=== PATIENT | female | born 1995 | race Caucasian/White ===

== ENCOUNTER → 2022-04-12 10:32 | Outpatient (BNVA) | payer MEDICAID, SELFPAY | PROVIDERS: Visit Provider Nurse Practitioner Women's Health | DX: Z34.91 Encounter for supervision of normal pregnancy, unspecified, first trimester (principal); Z3A.09 9 weeks gestation of pregnancy | CPT/HCPCS: 76801; 81000; 81025 ==

== ENCOUNTER → 2022-05-07 15:45 | Outpatient (BNVA) | payer OTHER, SELFPAY | PROVIDERS: Visit Provider Obstetrics & Gynecology | DX: O09.899 Supervision of other high risk pregnancies, unspecified trimester (principal) | CPT/HCPCS: 80307; 81000; 85027; 86592; 86762; 86803; 86850; 86900; 87086; 87340; 87491; 87591; 87661; 87806; 88175 ==

== ENCOUNTER → 2022-06-04 16:37 | Outpatient (BNVA) | payer MEDICAID, SELFPAY | PROVIDERS: Visit Provider Nurse Practitioner Women's Health | DX: O09.899 Supervision of other high risk pregnancies, unspecified trimester (principal); R00.2 Palpitations; R06.02 Shortness of breath; Z36.9 Encounter for antenatal screening, unspecified; O35.2XX0 Maternal care for (suspected) hereditary disease in fetus, not applicable or unspecified | CPT/HCPCS: 80053; 82105; 84315; 84443; 85025; 87086 ==

== ENCOUNTER 2022-07-23 19:25 | Outpatient (CLI) | payer OTHER, MEDICAID, SELFPAY ==
[2022-07-23] VITALS (8 sets, daily range): BP systolic 114–122; BP diastolic 67–75; PULSE 78–90; RESP 16; TEMP 35.6–36.8; BMI 27.8
[2022-07-23 20:42] LABS: Add Urine Microscopic? YES; Bilirubin Urine 1+ (Negative); Blood Urine Neg (Negative); Glucose Urine UA Norm (Normal); Ketones Urine 1+ (Negative); Leukocyte Esterase Urine Trace (Negative); Nitrate Urine Negative (Negative); Protein Urine Neg (Negative); Urine Appearance Hazy (CLEAR); Urine Color Yellow (Yellow); Urobilinogen Urine 4+ mg/dL (Negative); pH Urine 6.5 (5-7)
[2022-07-23 20:43] LABS: Add Urine Culture? No; Bacteria Urine 2+ /hpf; Calcium Oxalate Crystals Urine 15-25 /hpf; Mucus Urine 2+ /hpf; WBC Urine 0-4 /hpf (0-5)
== END 2022-07-23 21:01 | disposition home or self-care (01) ==
LOC: OPOB 19:32 → OBGYN 19:33
PROVIDERS: Visit Provider Obstetrics & Gynecology
DX: O26.899 Other specified pregnancy related conditions, unspecified trimester (principal); M54.9 Dorsalgia, unspecified; Z3A.00 Weeks of gestation of pregnancy not specified
CPT/HCPCS: 81001; 99211

== ENCOUNTER → 2022-07-26 08:49 | Outpatient (BNVA) | payer OTHER, MEDICAID, SELFPAY | PROVIDERS: Visit Provider Obstetrics & Gynecology | DX: O09.899 Supervision of other high risk pregnancies, unspecified trimester (principal) | CPT/HCPCS: 82950; 84315 ==

== ENCOUNTER 2022-08-25 18:15 | Outpatient (CLI) | payer MEDICAID, SELFPAY ==
[2022-08-25 18:15] VITALS: BMI 30.2
[2022-08-25 18:34] VITALS: BP 131/76; PULSE 86
[2022-08-25 18:55] VITALS: BP 117/74; PULSE 81
[2022-08-25 19:23] VITALS: BP 117/74; PULSE 81
== END 2022-08-25 19:20 | disposition home or self-care (01) ==
LOC: OPOB 18:25 → OBGYN 18:28
PROVIDERS: Absent Provider Obstetrics & Gynecology; Visit Provider Obstetrics & Gynecology
DX: O36.8190 Decreased fetal movements, unspecified trimester, not applicable or unspecified (principal); Z3A.00 Weeks of gestation of pregnancy not specified
CPT/HCPCS: 59025; 99211

== ENCOUNTER 2022-09-05 06:41 | Outpatient (CLI) | payer MEDICAID, SELFPAY ==
--- NOTE | 2022-09-05 07:15 | USR_ITS ---
PROCEDURE INFORMATION: Exam: US , Limited Exam date and time: 09/05/2022 7:28 AM Age: 27 years old Clinical indication: Screening exam; Other: Fundal height large for ga; ; Additional info: Z34.90 - encounter for supervision of normal , u. . . , Cpt: 03535 growth TECHNIQUE: Imaging protocol: Real-time ultrasound of the maternal uterus with image documentation. Exam focused on the clinical indication. COMPARISON: US OB <= 14 weeks fetus [id number] 04/12/2022 10:40 AM FINDINGS: Gestation: Single live intrauterine gestation with heart rate measuring 147 bpm. lie: Vertex lie. Placenta: Posterior placenta. Amniotic fluid index: SAMMY measures 14.4 cm, normal. BIOMETRY: Gestational age (AUA): Ultrasound gestational age of 31 weeks 2 days for an SOLOMON of 11/05/2022. Estimated weight: EFW measures 1723 g +/-258 g, 75th percentile. MATERNAL: Cervix: Maternal cervix is normal. Other findings: BPD measures 7.94 cm, 31 weeks 6 days, 91st percentile. HC measures 28.57 cm, 31 weeks 3 days, 60th percentile. HC measures 27.71 cm, 31 weeks 5 days, 92nd percentile. FL measures 5.74 cm, 30 weeks 1 day, 41st percentile. Ratios are all within normal limits. US/US OB limited [id number] IMPRESSION: 1. Single live intrauterine gestation with ultrasound gestational age of 31 weeks 2 days for an SOLOMON of 11/05/2022. 2. BPD measures at 91st percentile and HC measures at 92nd percentile. 3. EFW measures at 75th percentile.
== END 2022-09-05 06:42 | disposition home or self-care (01) ==
PROVIDERS: Visit Provider Obstetrics & Gynecology
DX: Z34.90 Encounter for supervision of normal pregnancy, unspecified, unspecified trimester (principal)
CPT/HCPCS: 76815

== ENCOUNTER 2022-10-02 18:00 | Outpatient (CLI) | payer OTHER, MEDICAID, SELFPAY ==
[2022-10-02] VITALS (9 sets, daily range): BP systolic 115–128; BP diastolic 63–76; PULSE 79–96; RESP 16; TEMP 35.9
--- NOTE | 2022-10-02 18:25 | USR_ITS ---
PROCEDURE INFORMATION: Exam: US Duplex Left Lower Extremity Veins, Limited Exam date and time: 10/02/2022 7:33 PM Age: 27 years old Clinical indication: Pain; Leg, lower; Left; Additional info: Rule out blood clot left calf TECHNIQUE: Imaging protocol: Real-time duplex ultrasound of the left extremity with 2-D polanco scale, color Doppler flow and spectral waveform analysis including responses to compression and other maneuvers (when performed) with image documentation. Limited exam focused on the left lower extremity veins. COMPARISON: US OB limited [id number] 09/05/2022 7:28 AM FINDINGS: Left deep veins: Unremarkable. The common femoral, femoral, proximal profunda femoral, popliteal, posterior tibial and peroneal veins are patent without thrombus. Normal compressibility, augmentation response and Doppler waveforms. Superficial veins: Unremarkable. Saphenofemoral junction is patent without thrombus. Soft tissues: Unremarkable. US/[place] [id number] IMPRESSION: No sonographic evidence of deep vein thrombosis.
[2022-10-02] MEDS: lactated ringers 1,000 ML 999 ML IV ×2 (19:09→20:13)
[2022-10-02 19:12] LABS: Bilirubin Urine Neg (Negative); Blood Urine Neg (Negative); Glucose Urine UA Norm (Normal); Ketones Urine Negative (Negative); Leukocyte Esterase Urine Negative (Negative); Nitrate Urine Negative (Negative); Protein Urine Neg (Negative); Urine Appearance Clear (CLEAR); Urine Color Yellow (Yellow); Urobilinogen Urine Norm (Negative); pH Urine 6.5 (5-7)
[2022-10-02 19:13] LABS: Add Urine Culture? No; Bacteria Urine TRACE /hpf; RBC Urine 0-4 /hpf (0-2); Squamous Epithelial Cell Urine 0-4 /hpf (0-5); WBC Urine 0-4 /hpf (0-5)
== END 2022-10-02 21:33 | disposition home or self-care (01) ==
LOC: OPOB 18:04 → OBGYN 18:05
PROVIDERS: Visit Provider Obstetrics & Gynecology
DX: O26.899 Other specified pregnancy related conditions, unspecified trimester (principal); M79.662 Pain in left lower leg; Z3A.00 Weeks of gestation of pregnancy not specified
CPT/HCPCS: 36415; 59025; 81001; 93971; 99211; J7120

== ENCOUNTER 2022-10-03 13:48 | Outpatient (CLI) | payer MEDICAID, SELFPAY ==
[2022-10-03] VITALS (49 sets, daily range): BP systolic 124–141; BP diastolic 76–87; PULSE 75–94; RESP 15; TEMP 35.9–36.6; O2SAT 98–100; BMI 30.2
[2022-10-03 14:31] LABS: Actim Prom Negative
--- NOTE | 2022-10-03 14:37 | US_ITS ---
WS: [id number] BIOPHYSICAL PROFILE AND LIMITED OB. HISTORY: fundus measuring ahead of EDC COMPARISON: 09/05/2022, 04/12/2022 Presentation: Vertex. Cervix: Closed and normal length. Placenta: Posterior, no previa or abruption. Grade: 1 HEART: FHR of 164BPM. Biophysical profile: Parameters are as follows: Breathin Movement: 2 Tone: 2 Fluid volume: 2 Amniotic fluid index: 20.1 cm. IMPRESSION: 1. Biophysical profile score: 8/8. 2. Normal amniotic fluid.
--- NOTE | 2022-10-03 17:15 | USR_ITS ---
PROCEDURE INFORMATION: Exam: US , Limited Exam date and time: 10/03/2022 5:25 PM Age: 27 years old Clinical indication: Screening exam; Other: Unclear dates; ; Additional info: Discrepencies in dates, growth scan LABS AND CLINICAL REPORTS: Last menstrual period start date: 02/08/2022 Gestational age (Established): 33 w 6 d Estimated due date (Established): 11/15/2022 TECHNIQUE: Imaging protocol: Real-time ultrasound of the maternal uterus with image documentation. Exam focused on the clinical indication. COMPARISON: US OB BPP wo NST [id number] 10/03/2022 2:51 PM FINDINGS: Gestation: Intrauterine gestation. heart rate: 150 bpm Placenta: Posterior placenta. Amniotic fluid index: SAMMY is 18 cm. BIOMETRY: Gestational age (AUA): 35 w 0 d Estimated weight: 2554 g Biparietal diameter (BPD): 8.7 cm. EGA (BPD) is 35 w 2 d Head circumference (HC): 31.6 cm. EGA (HC) is 35 w 3 d Abdominal circumference (AC): 31.2 cm. EGA (AC) is 35 w 1 d Femur length (FL): 6.7 cm. EGA (FL) is 34 w 2 d Cephalic Index (CI): 87.1 % HC/AC: 1.01 FL/HC: 21.1 % FL/BPD: 76.3 % FL/AC: 21.4 % US/US OB limited [id number] IMPRESSION: Live intrauterine gestation with an estimated gestational age of 35 weeks 0 days based on today's study. Based on established gestational age, this represents appropriate interval growth.
[2022-10-03] MEDS: NIFEdipine ER (24 hr) 30 mg Tablet PO (17:50)
[2022-10-03] MEDS: lactated ringers 1,000 ML 125 ML IV (19:30)
[2022-10-03] MEDS: ampicillin 2,000 MG in sodium chloride 0.9% (plus) 50 ML 100 MG IV (19:31)
[2022-10-03] MEDS: betamethasone susp 6 mg/mL 5 mL 12 MG IM (19:31)
--- NOTE | 2022-10-03 19:41 | PM.PN ---
Subjective Subjective: 27-year-old female G3, P2 with an EGA at 33 weeks +6 days complaining of contractions Vitals/I&O/Wt Last Vital Signs Temp 96.6 F L 10/03/22 14:08 Pulse 83 10/03/22 17:46 BP 137/79 10/03/22 16:00 Pulse Ox 98 10/03/22 17:46 Weight last 48 hrs Weight 87.636 kg Physical Exam Narrative: GA: Alert and oriented ?3. Lungs: Clear to auscultation bilaterally. Heart: Regular rhythm and rate. Abdomen: Gravid, full the height equals dates, nontender. SUPER[employer]OR [employer]INTENANCE: SVE; dilation: 1 cm, effacement: 20%, station: -3, presentation: VX, membranes: IM. Extremities: no edema, no cyanosis, no calves pain. heart tracing: Basal rate: 140's bpm, Variability: moderate, Accelerations: present, Decelerations: absent, Contraction: q3-5min. A&P Assessment and plan (1) labor in third trimester: 27-year-old female G3, P2 with an EGA at 33 weeks +6 days complaining of contractions. Initial cervical evaluation was close. Patient was offered tocolysis initially she declined the medication because she thought she has a viral breath large-base. Biophysical Profile 09/24, OB ultrasound correlate with estimated gestational age. After she was reassured the baby was normal size she accepted treatment with nifedipine. Cervical reevaluation showed the cervix was dilated to 1 cm with 20% effacement, and contractions every 3-5. She was started on antibiotics, tocolysis, steroids and magnesium sulfate. [facility] was called and OB hospitalist Dr. Cook accepted the patient for transfer. Attestations Medical Necessity Statement*: In my professional opinion per admitting diagnosis Coding Level of Care Code Acute Code for Chg Fwd Diagnoses labor in third trimester O60.03
[2022-10-03] MEDS: magnesium sulfate premix 20 GM/500 ML BAG IV (20:09)
[2022-10-03] MEDS: magnesium sulfate premix 4 GM/100 ML PREMIX IV (20:09)
[2022-10-03 20:16] LABS: Basophils % 0.2 %; Eosinophils # 0.1 10^3/uL (0.0-0.8); Eosinophils % 0.7 %; Hematocrit 33.9 % (37.0-47.0); Hemoglobin 11.1 g/dL (11.5-15.3); Lymphocytes # 1.6 10^3/uL (0.8-4.8); Lymphocytes % 15.3 %; Mean Corpuscular HGB Conc 32.7 g/dL (30.0-36.0); Mean Corpuscular Hemoglobin 26.2 pg (28.0-34.0); Mean Platelet Volume 10.1 fL (7.4-10.4); Monocytes # 0.7 10^3/uL (0.2-0.9); Monocytes % 6.2 %; Neutrophils # 8.09 10^3/uL (1.8-7.7); Neutrophils % 76.4 %; Nucleated Red Blood Cells % 0 %; Platelet Count 241 10^3/cmm (130-400); Red Blood Count 4.24 10^6/uL (4.1-5.3); Red Cell Distribution Width 12.7 % (12.1-15.1); White Blood Count 10.6 10^3/uL (4.0-10.0)
--- NOTE | 2022-10-03 23:05 | PC.NURSE ---
Pt was transferred with air evac at 2043 on 10/03/22
== END 2022-10-03 20:43 | disposition home or self-care (01) ==
LOC: OPOB 13:56 → OBGYN 13:57
PROVIDERS: Visit Provider Obstetrics & Gynecology
DX: O60.03 Preterm labor without delivery, third trimester (principal); Z3A.33 33 weeks gestation of pregnancy
CPT/HCPCS: 59025; 76815; 76819; 84112; 85025; 96372; 99211; J0290; J0702; J3475; J7120

== ENCOUNTER → 2022-10-08 13:21 | Outpatient (BNVA) | payer OTHER, MEDICAID, SELFPAY | PROVIDERS: Visit Provider Obstetrics & Gynecology | DX: O60.00 Preterm labor without delivery, unspecified trimester (principal) | CPT/HCPCS: 76819 ==

== ENCOUNTER 2022-10-18 10:37 | Outpatient (CLI) | payer MEDICAID, SELFPAY ==
[2022-10-18 10:56] VITALS: BP 141/85; PULSE 94
[2022-10-18 11:00] VITALS: RESP 16
--- NOTE | 2022-10-18 11:02 | US_ITS ---
WS: [id number] BIOPHYSICAL PROFILE AMNIOTIC FLUID HISTORY: swelling, hypertension COMPARISON: 10/08/2022 position: Vertex. Cardiac activity: 133 bpm. Cervix: closed. Placenta: Posterior, no previa or abruption. Placenta grade: 1 Parameters are as follows: Breathin Movement: 2 Tone: 2 Fluid volume: 2 Normal amniotic fluid. Large vertical pocket of 5.0 cm. IMPRESSION: 1. Biophysical profile score: 8/8. 2. Normal amniotic fluid.
[2022-10-18 11:15] VITALS: BP 122/69; PULSE 96
[2022-10-18 11:22] VITALS: BMI 30.2
[2022-10-18 11:24] LABS: Basophils % 0.2 %; Eosinophils # 0.1 10^3/uL (0.0-0.8); Eosinophils % 0.7 %; Hematocrit 32.8 % (36-47); Lymphocytes # 1.5 10^3/uL (0.8-4.8); Lymphocytes % 16.6 %; Mean Corpuscular HGB Conc 32.9 g/dL (30-55); Mean Corpuscular Hemoglobin 26.5 pg (27-33); Mean Corpuscular Volume 80.4 fl (85-98); Mean Platelet Volume 9.6 fL (7.4-10.4); Monocytes # 0.7 10^3/uL (0.2-0.9); Monocytes % 7.4 %; Neutrophils # 6.84 10^3/uL (1.8-7.7); Nucleated Red Blood Cells % 0 %; Platelet Count 276 10^3/cmm (157-399); Red Blood Count 4.08 10^6/uL (3.85-5.65); Red Cell Distribution Width 12.8 % (12.1-15.1); White Blood Count 9.23 10^3/uL (3.29-11.43)
[2022-10-18 11:26] VITALS: BP 119/67; PULSE 94
[2022-10-18 11:43] LABS: Add Urine Culture? No; Add Urine Microscopic? YES; Amorphous Sediment Urine 3+ /hpf; Bilirubin Urine Neg (Negative); Blood Urine Neg (Negative); Glucose Urine UA Norm (Normal); Ketones Urine Negative (Negative); Leukocyte Esterase Urine Trace (Negative); Nitrate Urine Negative (Negative); Protein Urine Neg (Negative); RBC Urine 0-4 /hpf (0-2); Squamous Epithelial Cell Urine 0-4 /hpf (0-5); Urine Appearance Clear (CLEAR); Urine Color Yellow (Yellow); Urobilinogen Urine Norm (Negative); WBC Urine 0-4 /hpf (0-5); pH Urine 7 (5-7)
[2022-10-18 12:03] VITALS: BP 122/76; PULSE 84
[2022-10-18 12:09] LABS: Urine Creatinine 51 mg/dL (28-217); Urine Protein Random 6 mg/dL
[2022-10-18 12:13] LABS: Alanine Aminotransferase 12 U/L (0-33); Albumin Level 3.6 g/dL (3.5-5.2); Alkaline Phosphatase 143 U/L (35-105); Anion Gap 16.1 (5-19); Aspartate Amino Transferase 9 U/L (0-32); Blood Urea Nitrogen 9 mg/dL (6-20); Calcium 9.1 mg/dL (8.5-10.5); Carbon Dioxide 21 mmol/L (22-29); Chloride 103 mmol/L (98-107); Globulin 2.6 g/dL (1.3-4.6); Glomerular Filtration Rate 145.9 mL/min (90-130); Glucose 107 mg/dL (65-115); Osmolality Calculated 281 mOsm/kg (285-295); Potassium 4.1 mmol/L (3.5-5.1); Sodium 136 mmol/L (136-145); Total Bilirubin 0.2 mg/dL (0.15-1.2); Total Protein 6.2 g/dL (6.6-8.7); Uric Acid 3.6 mg/dL (2.4-5.7)
[2022-10-18 12:13] LABS: UPRO/UCREAT Ratio 0.12 mg/mg CR
[2022-10-18 12:23] VITALS: BP 127/70; PULSE 85
== END 2022-10-18 12:30 | disposition home or self-care (01) ==
LOC: OPOB 10:45 → OBGYN 10:47
PROVIDERS: Visit Provider Obstetrics & Gynecology
DX: O26.899 Other specified pregnancy related conditions, unspecified trimester (principal); Z3A.00 Weeks of gestation of pregnancy not specified; R60.9 Edema, unspecified; Z03.89 Encounter for observation for other suspected diseases and conditions ruled out
CPT/HCPCS: 36415; 59025; 76819; 80053; 81001; 82570; 84156; 84315; 84550; 85025; 99211

== ENCOUNTER 2022-10-19 23:42 | Outpatient (CLI) | payer MEDICAID, SELFPAY ==
[2022-10-19 23:35] VITALS: RESP 16
[2022-10-19 23:44] VITALS: BMI 30.2
[2022-10-19 23:50] VITALS: BP 122/82; PULSE 95; TEMP 35.6
[2022-10-20 00:35] VITALS: BP 121/69; PULSE 80
[2022-10-20 00:55] VITALS: BP 129/79; PULSE 85
[2022-10-20 01:15] VITALS: BP 121/76; PULSE 88
[2022-10-20 01:36] VITALS: BP 118/70; PULSE 82
[2022-10-20 01:55] VITALS: BP 131/78; PULSE 79
[2022-10-20 02:20] VITALS: BP 131/78; PULSE 79
== END 2022-10-20 02:21 | disposition home or self-care (01) ==
LOC: OPOB 23:42 → OBGYN 23:43
PROVIDERS: Visit Provider Pharmacist
DX: O26.899 Other specified pregnancy related conditions, unspecified trimester (principal); Z3A.00 Weeks of gestation of pregnancy not specified; R10.9 Unspecified abdominal pain
CPT/HCPCS: 59025; 99211

== ENCOUNTER 2022-10-25 08:00 | Day surgery (SDC) | payer OTHER, MEDICAID, SELFPAY ==
--- NOTE | 2022-10-25 10:11 | P.ANESASSM_ITS ---
Pre-Anesthetic Assessment Height/Weight: Height 1.7 m Operation Date: 11/08/22 07:20 Proposed Procedures p Section 07449,O82(Not Applicable) - Suresh Rome MD Familial anesthetic complications: None Social No alcohol and No tobacco Exam alert, oriented x 3, clear to auscultation bilaterally and regular rate & rhythm Airway Mallampati: Class I Dentition: full Pulmonary None reported CV/HEM None reported None reported Hepatic None reported GI Gastroesophageal Reflux Disease Metabolic None reported Musc/skel None reported Neuropsych None reported Anesthetic Plan ASA status: 2 Anesthesia: Regional (specify below) (spinal) Risk of > 500 ml blood loss (7ml/kg in children): Yes, adequate IV access and fluids planned Medications/Allergies Home Medications Medication Instructions Recorded Confirmed Last Taken Type PNV 153-FA 400 mcg-om3 35 mg-dha 2 tab PO DAILY 04/12/22 10/25/22 10/20/22 History 25 mg-epa 5 mg-fish oil chew tablet ( Gummies) Allergies Allergy/AdvReac Type Severity Reaction Status Date / Time No Known Allergies Allergy Verified 10/25/22 08:44 [facility] Anesthesia Medical History No pertinent past medical history neghx:htn,dm,thyroid,dvt/pe PCP: None Surgical History H/O lithotripsy H/O myringotomy per pt, had 9 of these procedures H/O removal of cyst Cyst removal form wrist History of cholecystectomy (~2021) History of surgery on lower extremity bilateral leg surgery to repair bones. Was not caused by an accident, was a growth issue. History of tonsillectomy and adenoidectomy Family History Brother Cardiomyopathy dx at age 16 Grandmother Ovarian cancer paternal Mother Stroke TIA Father Crohn's disease Denies family history of Colon cancer Diabetes Heart disease Hyperlipidemia Breast cancer Hypertension Uterine cancer Thyroid condition Data Anesthesia Cardiac Studies: No Data to Display
== END 2022-10-25 23:00 | disposition home or self-care (01) ==
LOC: OR 01-15 08:34
PROVIDERS: Visit Provider Obstetrics & Gynecology
DX: O09.899 Supervision of other high risk pregnancies, unspecified trimester (principal); Z3A.00 Weeks of gestation of pregnancy not specified

== ENCOUNTER 2022-10-29 18:08 | Outpatient (CLI) | payer MEDICAID, SELFPAY ==
[2022-10-29 18:27] VITALS: BP 133/83; PULSE 98; TEMP 35.9
[2022-10-29 18:30] VITALS: BMI 30.4
[2022-10-29 18:46] VITALS: BP 132/79; PULSE 85
[2022-10-29 18:49] VITALS: RESP 15
[2022-10-29 19:04] LABS: Actim Prom Negative
[2022-10-29 19:16] VITALS: BP 128/83; PULSE 98
[2022-10-29 19:48] VITALS: BP 134/78; PULSE 106
[2022-10-29 20:30] VITALS: BP 134/78; PULSE 106; RESP 16; TEMP 36.6
--- NOTE | 2022-10-29 21:27 | P.TNLD_ITS ---
OB L&D Triage Visit Information: Date of evaluation: 10/29/22 Reason for evaluation: threatened labor Comments/Additional reason(s) for visit: October 29, 2022, 2024 L&D NOTE 27 y.o.? EDC? November 15, 2022 At 37 w 4 d Presented to L&D c/o regular, painful UCs and fluid leakage + active movements POBHx:? 1.? , uncomplicated ? 2.? , female, absent corpus callosum, septum pellucidum, pituitary PSHx:? cholecystectomy ? Lithotripsy ? Lower legs NKDA Exam: Weight ? 193? lbs;? 5?7? VS? normal Comfortable, in no distress Abd:? soft Cx:? 2 cm / 25% / -4 / posterior / soft ActimProm? negative for rupture External monitor:? + UCs 1 q 15-20 minutes ? heart tracing good variability,? + accelerations A/P: 37 w 4 d Early labor No evidence of rupture of membranes Patient?s cervix was examined serially with no change Plan discharge patient Patient wants to stay and be induced Explained to patient she is not yet 39 weeks, has no obstetric indication for labor induction, and her cervix has not progressed. Evaluation: monitor accelerations: Present 15x15 station: -3 Laboratory results: Laboratory Tests 10/29/22 18:45 Insulin-like GF I Negative Vital signs: Vital Signs - 24 hr 10/29/22 18:27 10/29/22 18:46 10/29/22 19:16 Temperature 96.6 F L Pulse Rate 98 85 98 Respiratory Rate Blood Pressure 133/83 132/79 128/83 10/29/22 18:49 10/29/22 19:48 10/29/22 18:49 Temperature Pulse Rate 106 H Respiratory Rate 15 15 Blood Pressure 134/78 Care SOLOMON Calculator Estimated Delivery Date Method Current WG Current Estimate 11/15/22 Ultrasound #1 37w 4d Other Estimates 09/29/22 LMP (Uncertain) 44w 2d Specific Issues/Plans * Uterine size date discrepancy--9 week ultrasound dates the * History of a child with congenital anomaly; negative genetic findings Final Diagnosis Final Diagnosis (1) Supervision of other high-risk : Status: Acute Code(s): O09.899 - Supervision of other high risk pregnancies, unspecified trimester (2) Threatened labor at term: Status: Acute Code(s): O47.9 - False labor, unspecified Coding Level of Care Code Acute Code for Chg Fwd Diagnoses Supervision of other high-risk O09.899 Threatened labor at term O47.9 Time Spent (min) 30
== END 2022-10-29 20:30 | disposition home or self-care (01) ==
LOC: OPOB 18:11 → OBGYN 18:16
PROVIDERS: Visit Provider Obstetrics & Gynecology
DX: O09.899 Supervision of other high risk pregnancies, unspecified trimester (principal); O47.9 False labor, unspecified; Z3A.37 37 weeks gestation of pregnancy
CPT/HCPCS: 59025; 84112; 99211

== ENCOUNTER 2022-11-01 23:55 | Inpatient (IN) | payer MEDICAID, SELFPAY ==
[2022-11-01] VITALS (11 sets, daily range): BP systolic 127–146; BP diastolic 75–89; PULSE 77–104; RESP 16; TEMP 36.4; BMI 30.4
[2022-11-01 22:50] LABS: Basophils % 0.3 %; Eosinophils # 0.1 10^3/uL (0.0-0.8); Hematocrit 32.8 % (36-47); Lymphocytes % 17.6 %; Mean Corpuscular HGB Conc 32.6 g/dL (30-55); Mean Corpuscular Hemoglobin 25.7 pg (27-33); Mean Corpuscular Volume 78.7 fl (85-98); Monocytes # 0.8 10^3/uL (0.2-0.9); Neutrophils # 8.05 10^3/uL (1.8-7.7); Neutrophils % 72.2 %; Nucleated Red Blood Cells % 0 %; Platelet Count 262 10^3/cmm (157-399); Red Blood Count 4.17 10^6/uL (3.85-5.65); Red Cell Distribution Width 12.9 % (12.1-15.1); White Blood Count 11.14 10^3/uL (3.29-11.43)
[2022-11-01] MEDS: lactated ringers 1,000 ML 999 ML IV (23:13)
[2022-11-01] MEDS: metoclopramide 5 mg/mL SDV 2 mL 10 MG IVP (23:15)
[2022-11-01] MEDS: famotidine 20 mg/2 mL INJ IVP (23:15)
[2022-11-01] MEDS: citric acid-sodium citrate 30 mL UDC PO (23:15)
[2022-11-01] MEDS: ceFAZolin 2,000 MG in sodium chloride 0.9% (plus) 50 ML 100 MG IV (23:16)
--- NOTE | 2022-11-01 23:38 | PM.OPHPUD ---
Labor & Delivery H&P Update Date of Procedure: November 01, 2022 Date H&P Performed: 10/31/22 H&P update information: I have reviewed H&P completed within last 30 days, I have examined patient prior to procedure and Changes to prior documentation as noted here (cervix 3-4/50%/-3/VX/PROM) Admission Diagnosis: Primary indication for procedure: She was counseled regarding Delivery on Maternal Request. In the absence of maternal or indications for delivery, a plan for vaginal delivery is safe and appropriate. But she wants a due to concerns because of previous infants complications. She was informed again that in the absence of other indications for early delivery, delivery on maternal request should not be performed before a gestational age of 39 weeks. However she had PROM and requested to proceed with the primary delivery. Planned procedure: Operation Date: 11/01/22 00:00 Proposed Procedures p Section With Tubal(Bilateral) - Suresh Rome MD
--- NOTE | 2022-11-01 23:39 | ANES.PAUD2 ---
Pre-Anesthetic Update Pre-Anesthetic Assessment: Date of Surgery/Procedure: 11/01/22 Proposed Procedure: Operation Date: 11/01/22 00:00 Proposed Procedures p Section With Tubal(Bilateral) - Suresh Rome MD Any changes to Pre-Anesthetic Assessment?: No Last Intake: 11/01/22 @1700 Labs Last 48hrs: Short CBC 11/01/22 Range/Units 22:04 WBC 11.14 (3.29-11.43) 10^ 3/uL Hgb 10.70 L (11.27-16.99) g/ dL Hct 32.8 L (36-47) % MCV 78.7 L (85-98) fl Plt Count 262 (157-399) 10^3/c mm Neut % (Auto) 72.2 % Neut # (Auto) 8.05 H (1.8-7.7) 10^3/u L Vitals: Pulse Rate 83 11/01/22 23:18 Pulse Rhythm Regular 11/01/22 21:47 Pulse Strength 3+ Normal 11/01/22 21:47 Respiratory Effort Spontaneous, Non- Labored 11/01/22 21:47 Respiratory Depth Normal 11/01/22 21:47 Respiratory Patter n Normal 11/01/22 21:47 Blood Pressure 146/86 11/01/22 23:18 Oxygen Delivery Me thod Room Air 11/01/22 21:47 Exam: Pre-Anes Outpt Exam: alert, oriented x 3, clear to auscultation bilaterally and regular rate & rhythm Cardiac Studies: No Data to Display
[2022-11-02] VITALS (39 sets, daily range): BP systolic 105–130; BP diastolic 54–81; PULSE 62–94; RESP 16–18; TEMP 36.3–37.3; O2SAT 100
--- NOTE | 2022-11-02 01:33 | P.OP_ITS ---
Operative Report Date of procedure: November 02, 2022 Pre-op diagnosis: Term Premature rupture of membranes per maternal request Desire permanent sterilization Post-op diagnosis: Same as above Post-op findings: Term male infant, Apgars 8/9 Procedure done: Primary low transverse delivery Bilateral partial salpingectomy Specimens removed/disposition: Left and right fallopian tube segments Surgeon: Suresh Rome MD Estimated blood loss (mL): 1,000 IV fluids (mL): 700 Urine output (mL): 600 Complications: None Procedure: After assuring informed consent, the patient was taken to the operating room and anesthesia was initiated. She was placed in the dorsal supine position with a left lateral tilt. The abdomen was prepped and draped in the usual sterile manner. A time-out procedure was performed. Preop antibiotics was administered. A Pfannenstiel skin incision was made with the scalpel and carried through to the underlying layer of fascia with the Bovie. The fascia was nicked in the midline and the incision extended laterally with the scissors. The superior aspect of the fascial incision was then grasped with Karina clamps and elevated and the underlying rectus muscle dissected off bluntly and sharp with scissors. Attention was then turned to the inferior aspect of the incision which, in similar fashion, was grasped and tented up with Karina clamps and the rectus muscle dissected bluntly. The rectus muscles were then in the midline and the peritoneum identified, tented up and entered sharply with Metzenbaum scissors. The peritoneal incision was then extended superiorly and inferiorly with good visualization of the bladder. The Danyel O retractor was then inserted and the vesicouterine peritoneum identified, grasped with pickups and entered sharply with Metzenbaum scissors. This incision was then extended laterally and the bladder flap created digitally. The uterus incised in a low transverse fashion with the scalpel. The uterine incision was then extended with the bandage scissors. The was then delivered in the cephalic presentation atraumatically. The nose and the mouth were suctioned with bulb and the cord clamped and cut. The cord was normal and had three vessels. Amniotic fluid was clear. 8/9 The placenta was then removed manually and the uterus exteriorized and cleared of all clots and debris. The uterine incision was repaired with 0 Vicryl in a running-locked fashion. A second layer of the same suture was used to obtain excellent hemostasis. The gutters were cleared of all clots. The left fallopian tube was identified and grasped with a Alvarez clamp. The tube was then followed out to the fimbria. An avascular midsection of the fallopian tube was grasped with a Alvarez clamp and brought into a knuckle. The tube was grasped, sealed and transected with the Swarm Mobile fine device. The specimen was sent to pathology. Excellent hemostasis was noted. The same procedure was performed on the opposite fallopian tube. The uterus was then returned to the abdomen. The rectus muscles were approximated with 3-0 chromic gut. The fascia was reapproximated with 0 Vicryl in an interrupted running fashion. Exparel was infiltrated to the adipose tissue. The skin was closed with Insorb?s subcuticular absorbable anna. The patient tolerated the procedure well. The sponge, lap and needle counts were correct times three.
--- NOTE | 2022-11-02 09:36 | ANE.PACU2 ---
Inpatient post-anesthesia follow up: Airway intact: Yes Vital signs: Temperature 99.1 F Pulse Rate 77 Respiratory Rate 16 Blood Pressure 120/61 Pulse Oximetry 100 Oxygen Delivery Me thod Room Air Oxygen Flow Rate Fraction of Inspir ed Oxygen Hydration adequate: Yes Nausea and vomiting: No Pain level: 2 Mental status: Baseline
[2022-11-02] MEDS: ibuprofen 800 mg tablet PO ×3 (10:21→21:04)
[2022-11-02] MEDS: prenatal vitamin Capsule 1 CAP PO (10:21)
[2022-11-02] MEDS: ferrous sulfate EC 325 mg Tablet PO ×2 (10:21→21:03)
[2022-11-02] MEDS: docusate sodium 100 mg Capsule PO ×2 (10:22→21:04)
[2022-11-02 14:47] LABS: Hematocrit 26.9 % (36-47); Mean Corpuscular HGB Conc 32.7 g/dL (30-55); Mean Corpuscular Hemoglobin 25.9 pg (27-33); Mean Corpuscular Volume 79.1 fl (85-98); Platelet Count 227 10^3/cmm (157-399); White Blood Count 12.44 10^3/uL (3.29-11.43)
--- NOTE | 2022-11-02 14:52 | PM.PN ---
Subjective Subjective: Ms. Jamison is a 27 year old status post primary low-transverse delivery day 1. Pain well under control. No complaints. Vitals/I&O/Wt Last Vital Signs Temp 99.1 F 11/02/22 06:56 Pulse 77 11/02/22 09:00 Resp 16 11/02/22 02:34 BP 120/61 11/02/22 09:00 Pulse Ox 100 11/02/22 02:10 O2 Del Method Room Air 11/02/22 02:10 11/01/22 11/02/22 11/02/22 22:59 06:59 14:59 Intake Total 50 / 50 Output Total 900 / 900 Balance -850 / -850 Weight last 48 hrs Weight 87.997 kg Physical Exam Narrative: GA; alert and oriented x 3 HEENT: normal Breasts: engorged Nipples - skin intact Lungs; clear to auscultation Heart: regular rhythm, no murmurs. Abd: Appropriately tender. BS+. Uterine fundus below umbilicus. No Fundal Tenderness minimal tenderness, incision clean and dry, no redness, pain or edema.. Perineum: normal lochia. Extremities: no edema, no cyanosis, no tenderness. Urinary Catheter Management: Rodriguez Latex: Cath Placed During This Visit: yes Urinary Catheter Date of Insertion: 11/01/22 Urinary Catheter Time of Insertion: 23:58 Data 11/02/22 14:13 A&P Assessment and plan (1) Status post primary low transverse section: Ms. Jamison is a 27 year old status post primary low-transverse delivery on maternal request and bilateral partial salpingectomy postoperative day 1. She is afebrile and hemodynamically stable. Tolerating diet well. Ambulating without difficulty. (2) Premature rupture of membranes (PROM) affecting third : Plan Postop observation Attestations Medical Necessity Statement*: In my professional opinion per admitting diagnosis Coding Level of Care Code Acute Code for Chg Fwd Diagnoses Status post primary low transverse section Z98.891 Premature rupture of membranes (PROM) affecting third O42.90
[2022-11-03 04:13] VITALS: BP 118/64; PULSE 84
[2022-11-03 06:00] VITALS: RESP 16
[2022-11-03 08:36] VITALS: BP 123/80; PULSE 64; RESP 18; TEMP 36.5
[2022-11-03] MEDS: docusate sodium 100 mg Capsule PO (09:49)
[2022-11-03] MEDS: ibuprofen 800 mg tablet PO (09:49)
[2022-11-03] MEDS: prenatal vitamin Capsule 1 CAP PO (09:49)
--- NOTE | 2022-11-03 10:32 | P.DS_ITS ---
Discharge Providers BENCH LATHE OPERATOR Date of Admission: 11/01/22 23:55 Date of Discharge: 11/03/22 Attending Provider at Admission: Suresh Rome MD Attending Provider at Discharge: Suresh Rome MD Primary BENCH LATHE OPERATOR: Suresh Rome MD Diagnoses at Discharge Discharge Diagnosis (1) Status post primary low transverse section: Status: Acute (2) Premature rupture of membranes (PROM) affecting third : Status: Acute Reason for Visit Reason for Visit: Term , premature rupture of membranes Brief History: Ms. Jamison is a 27 year old established patient with LMP of 12/23/2021, SOLOMON of 11/15/2022 based off of 9 week dating ultrasound, who has been receiving care from [facility]. CC: Onset of labor at term and and premature rupture of membrane. HPI: Received appropriate care. Daily vitamins since start of care. labs have all been normal, including negative for HIV. She was found to negative for Group B Strep from screening at 36 weeks. She has gained approximately 14 lbs throughout the . She denies a history of HTN during . Glucose tolerance screening for gestational diabetes was negative. complicated by significant episodes of [place] Gutier[place], causing multiple visits to labor and delivery and treatment for suspected labor. Hospital Course Hospital Course Mrs. Jamison 27-year-old female G3, P3 admitted to labor and delivery with premature rupture of membranes. She had previously requested a delivery and permanent sterilization during care. A primary low- transverse delivery was performed without complication. She delivered a male infant Apgars 8/9. Postop observation had been uneventful. She is afebrile and hemodynamically stable postoperative day 2. Tolerating diet well. Ambulating without difficulty. Pain under control. She was counseled regarding pelvic rest for 6 weeks (no sex, no tampons, no vaginal douches). Return to the emergency room if any fever, increased bleeding or pain. Information Peripartum Data: Infant Delivery Method: Physical Exam Narrative: GA; alert and oriented x 3 HEENT: normal Breasts: engorged Nipples - skin intact Lungs; clear to auscultation Heart: regular rhythm, no murmurs. Abd: Appropriately tender. BS+. Uterine fundus below umbilicus. No Fundal Tenderness minimal tenderness, incision clean and dry, no redness, pain or edema.. Perineum: normal lochia. Extremities: no edema, no cyanosis, no tenderness. Urinary Catheter Management: Rodriguez Latex: Cath Placed During This Visit: yes Urinary Catheter Date of Insertion: 11/01/22 Urinary Catheter Time of Insertion: 23:58 History History History 3 Term 2 0 Miscarriages/Ectopic 0 Living Children 2 Discharge Data Studies Completed and Pending Pending at discharge Category Date Time Status Pathology: Surgical [PTH] Routine Pth 11/02/22 01:00 Ordered Laboratory Results WBC 12.44 10^3/uL (3.29-11.43) H 11/02/22 14:13 RBC 3.40 10^6/uL (3.85-5.65) L 11/02/22 14:13 Hgb 8.80 g/dL (11.27-16.99) L 11/02/22 14:13 Hct 26.9 % (36-47) L 11/02/22 14:13 MCV 79.1 fl (85-98) L 11/02/22 14:13 MCH 25.9 pg (27-33) L 11/02/22 14:13 MCHC 32.7 g/dL (30-55) 11/02/22 14:13 RDW 13.0 % (12.1-15.1) 11/02/22 14:13 Plt Count 227 10^3/cmm (157-399) 11/02/22 14:13 MPV 10.0 fL (7.4-10.4) 11/02/22 14:13 Neut % (Auto) 72.2 % 11/01/22 22:04 Lymph % (Auto) 17.6 % 11/01/22 22:04 [place] % (Auto) 7.0 % 11/01/22 22:04 Eos % (Auto) 1.0 % 11/01/22 22:04 Baso % (Auto) 0.3 % 11/01/22 22:04 Neut # (Auto) 8.05 10^3/uL (1.8-7.7) H 11/01/22 22:04 Lymph # (Auto) 2.0 10^3/uL (0.8-4.8) 11/01/22 22:04 [place] # (Auto) 0.8 10^3/uL (0.2-0.9) 11/01/22 22:04 Eos # (Auto) 0.1 10^3/uL (0.0-0.8) 11/01/22 22:04 Baso # (Auto) 0.0 10^3/uL (0.0-0.1) 11/01/22 22:04 Nucleated RBC % (auto) 0 % 11/01/22 22:04 Nucleated RBCs # 0.0 /100WBC 11/01/22 22:04 Blood Type O Positive 11/01/22 22:04 Rho(D) Type Positive 11/01/22 22:04 Antibody Screen Negative 11/01/22 22:04 Vitals Last Vital Signs Temp 97.7 F 11/03/22 08:36 Pulse 64 11/03/22 08:36 Resp 18 11/03/22 08:36 BP 123/80 11/03/22 08:36 Pulse Ox 100 11/02/22 02:10 O2 Del Method Room Air 11/02/22 02:10 Discharge Plan Discharge Patient Disposition: Home Condition: Stable Prescriptions: New hydrocodone-acetaminophen 5-325 mg tablet 1 tab PO Q4H PRN (Reason: pain) Qty: 30 0RF docusate sodium [Colace] 100 mg capsule 100 mg PO BID Qty: 60 0RF ferrous sulfate [Iron (ferrous sulfate)] 325 mg (65 mg iron) tablet 325 mg PO BID Qty: 60 0RF acetaminophen 325 mg capsule 325 mg PO Q4H PRN (Reason: fever or pain) Qty: 60 0RF ibuprofen 800 mg tablet 800 mg PO TID PRN (Reason: pain) Qty: 60 0RF Continued Gummies 400 mcg-35 mg- 25 mg-5 mg tablet,chewable 2 tab PO DAILY Discharge Orders: Discharge Order (Routine); Ordered 11/03/22 Ordered By: Suresh Rome Referrals: Suresh Rome MD [Physician] - 2 weeks Discharge Diet: Usual diet Discharge Activity: Limit activity as instructed Patient Instructions: Caring for Your Baby (GEN), TTN (Transient Tachypnea of [place]) (GEN), Your [place]'s Appearance (GEN), (GEN), Opioid Safety Activity Restrictions/Additional Instructions: 1. Please call [facility] on next working day to make your post-operative appointment in 2 weeks. 2. Please stay home until you come back to the clinic on first post- hospatilization check up. 3. Please follow instructions on your medications CAREFULLY. 4. If you have abdominal incision, do not cover it unless dressing is necessary because of drainage. OK to shower, but avoid bath. Leave steri-strips until they fall off. If they are still on one week after surgery, you may remove them. 5. If you had vaginal surgery or vaginal repair, Dr. Rome may instruct you to take SITZ bath. 6. Yellow, blood tinged odorous vaginal discharge is usually normal after hysterectomy or vaginal surgeries. 7. No SEXUAL INTERCOURSE, tampons, or douches until you are completely released from the post-operative care. 8. Avoid constipation by eating right and maybe using some Metamucil or Milk of Magnesia. 9. All prescription refills are given during the working hours. Please do no wait till it runs out. Call the clinic at [phone] before your medication runs out. The clinic will get in touch with your doctor to prescribe medications if necessary. 10. Please remain within 40 mile radius from our hospital because emergencies do happen now and then during the post-operative period. 11. If you have stairs at home, take one step at a time slowly and minimize the number of trips. It helps to stay in one floor for the next few days. No lifting except what you can lift by one hand until you are released from the post-operative care. 12. Driving is discouraged until you are well healed. It may be 3-4 weeks before you feel strong enough to drive. You should be able to turn and look through the rear window without pain and you should be able to push the brake pedal very hard without pain before you drive. No fast rules, but SAFETY should be your primary concern. DO NOT drive if you are on sedating medications such as narcotics. 13. Call the clinic (during working hours) to make urgent appointment or go to the Emergency room, if any of the following occurs: i. Vaginal bleeding becomes heavy, more than a period. ii. Incision becomes red and sore, or drains pus. iii. Your TEMPERATURE is over 100.4F or you have chill. iv. IV site becomes red and swollen (a little ``knot?? is usually OK) v. Persistent nausea and vomiting vi. Persistent constipation or diarrhea vii. Rash or allergic reaction to medications. Discharge Attestations BENCH LATHE OPERATOR Time Spent in Discharge Care*: greater than 30 min Coding Level of Care Code Acute Code for Chg Fwd Diagnoses Status post primary low transverse section Z98.891 Premature rupture of membranes (PROM) affecting third O42.90
[2022-11-03 11:00] VITALS: BP 125/71; PULSE 88
[2022-11-03 11:31] VITALS: BP 125/71; PULSE 88
== END 2022-11-03 11:35 | disposition home or self-care (01) | DRG 785 ==
LOC: OPOB 23:57 → OBGYN 23:57
PROVIDERS: Admitting Provider Obstetrics & Gynecology; Visit Provider Obstetrics & Gynecology
PROC: (CPT 59514; principal; 2022-11-01)
DX: O42.02 Full-term premature rupture of membranes, onset of labor within 24 hours of rupture (principal); Z3A.38 38 weeks gestation of pregnancy; Z37.0 Single live birth; Z30.2 Encounter for sterilization
CPT/HCPCS: 36415; 51702; 59025; 59409; 83986; 85025; 85027; 86850; 86900; 88302; 96374; 96376; 99211; C9290; J0690; J1885; J2274; J2405; J2765; J3010; J3490; J7030; J7120

== ENCOUNTER 2022-11-07 21:06 | Emergency (ER) | payer OTHER, MEDICAID, SELFPAY ==
[2022-11-07 21:18] VITALS: BP 132/83; PULSE 78; RESP 18; TEMP 36.4; O2SAT 99; BMI 29.0
[2022-11-07 21:52] LABS: Basophils % 0.3 %; Eosinophils # 0.3 10^3/uL (0.0-0.8); Eosinophils % 2.8 %; Hematocrit 30.4 % (36-47); Lymphocytes # 1.8 10^3/uL (0.8-4.8); Lymphocytes % 16.5 %; Mean Corpuscular HGB Conc 32.6 g/dL (30-55); Mean Corpuscular Hemoglobin 25.5 pg (27-33); Mean Corpuscular Volume 78.4 fl (85-98); Mean Platelet Volume 9.2 fL (7.4-10.4); Monocytes # 0.7 10^3/uL (0.2-0.9); Monocytes % 6.1 %; Neutrophils # 7.94 10^3/uL (1.8-7.7); Neutrophils % 73.1 %; Nucleated Red Blood Cells % 0 %; Platelet Count 384 10^3/cmm (157-399); Red Blood Count 3.88 10^6/uL (3.85-5.65); Red Cell Distribution Width 13.1 % (12.1-15.1); White Blood Count 10.85 10^3/uL (3.29-11.43)
[2022-11-07 21:58] LABS: Alanine Aminotransferase 9 U/L (0-33); Albumin Level 3.7 g/dL (3.5-5.2); Alkaline Phosphatase 152 U/L (35-105); Anion Gap 16.1 (5-19); Aspartate Amino Transferase 13 U/L (0-32); Blood Urea Nitrogen 11 mg/dL (6-20); Calcium 9.1 mg/dL (8.5-10.5); Carbon Dioxide 23 mmol/L (22-29); Chloride 102 mmol/L (98-107); Globulin 2.6 g/dL (1.3-4.6); Glomerular Filtration Rate 98.9 mL/min (90-130); Glucose 123 mg/dL (65-115); Lipase 24 U/L (13-60); Osmolality Calculated 285 mOsm/kg (285-295); Potassium 4.1 mmol/L (3.5-5.1); Sodium 137 mmol/L (136-145); Total Bilirubin 0.2 mg/dL (0.15-1.2); Total Protein 6.3 g/dL (6.6-8.7)
[2022-11-07 22:00] LABS: HCG, Serum Qual Positive (Negative)
--- NOTE | 2022-11-07 22:20 | CTR_ITS ---
PROCEDURE INFORMATION: Exam: CT Abdomen And Pelvis With Contrast Exam date and time: 11/07/2022 10:57 PM Age: 27 years old Clinical indication: Abdominal pain; Localized; Left lower quadrant (llq); Prior surgery; Surgery date: 3-7 days post-operative; Surgery type: Csection/tubal on Friday; Additional info: Llq pain, recent c-sction and tubal TECHNIQUE: Imaging protocol: Computed tomography of the abdomen and pelvis with contrast. Radiation optimization: All CT scans at this facility use at least one of these dose optimization techniques: automated exposure control; mA and/or kV adjustment per patient size (includes targeted exams where dose is matched to clinical indication); or iterative reconstruction. Contrast material: OMNI 350; Contrast volume: 80 ml; Contrast route: INTRAVENOUS (IV); REPORTING DATA: Count of CT and Cardiac NM exams in prior 12 months: This patient has received 0 known CTs and 0 known cardiac nuclear medicine studies in the 12 months prior to the current study. COMPARISON: US OB BPP wo NST [id number] 10/18/2022 11:30 AM RADIATION DOSE METRICS: Total DLP (mGy-cm): 785.1 FINDINGS: Liver: Hepatic steatosis. Gallbladder and bile ducts: Cholecystectomy. Pancreas: Normal. No ductal dilation. Spleen: Spleen enlarged 13.7 cm. Adrenal glands: Normal. No mass. Kidneys and ureters: Right kidney nonobstructing calyceal stone. Right kidney cyst, negative for follow-up advised. Stomach and bowel: Unremarkable. No obstruction. No mucosal thickening. Appendix: No evidence of appendicitis. Intraperitoneal space: Unremarkable. No free air. No significant fluid collection. Vasculature: Unremarkable. No abdominal aortic aneurysm. Lymph nodes: Unremarkable. No enlarged lymph nodes. Urinary bladder: Unremarkable as visualized. Reproductive: appearance of the uterus with a small amount of surrounding nonlocalized fluid, likely related to recent . Bones/joints: Unremarkable. No acute fracture. Soft tissues: Subcutaneous edema over the lower abdominal/pelvic wall is likely postsurgical in nature. Minimal free air in the lower anterior abdominal wall, likely postsurgical in nature. CT/CT abdomen pelvis w con* [id number] IMPRESSION: 1. appearance of the uterus with a small amount of surrounding nonlocalized fluid, likely related to recent . 2. Subcutaneous edema over the lower abdominal/pelvic wall is likely postsurgical in nature. 3. Hepatic steatosis. 4. Spleen enlarged 13.7 cm. 5. Cholecystectomy. 6. Right kidney nonobstructing calyceal stone. 7. Right kidney cyst, negative for follow-up advised. 8. Minimal free air in the lower anterior abdominal wall, likely postsurgical in nature.
--- NOTE | 2022-11-07 22:21 | ED_ITS ---
HPI - Abdominal Pain General: Chief Complaint: Abdominal Pain Stated Complaint: lower abd pain Time Seen by Provider: 11/07/22 22:21 History of Present Illness: 27-year-old female comes in today with abdominal pain. Patient reports left lower quadrant abdominal pain. Patient 5 days ago had a with tubal ligation. Patient denies any fever. Patient reports a good bowel movement this morning. Patient does breast-feed. Associated Symptoms: Reports constipation; Denies diarrhea, fever(s), nausea and vomiting Review of Systems General: Reports: 10 or more systems reviewed and unremarkable except in HPI and below Const: Denies: fever(s) Card: Denies: chest pain Resp: Denies: dyspnea GI: Reports: abdominal pain and constipation; Denies: nausea, vomiting or diarrhea Skin/Breast: Reports: other (Well-healing abdominal wound); Denies: rash PFSH ED PFSH: Medical History No pertinent past medical history neghx:htn,dm,thyroid,dvt/pe PCP: None Surgical History H/O lithotripsy H/O myringotomy per pt, had 9 of these procedures H/O removal of cyst Cyst removal form wrist History of cholecystectomy (~2021) History of surgery on lower extremity bilateral leg surgery to repair bones. Was not caused by an accident, was a growth issue. History of tonsillectomy and adenoidectomy Family History Brother Cardiomyopathy dx at age 16 Grandmother Ovarian cancer paternal Mother Stroke TIA Father Crohn's disease Denies family history of Colon cancer Diabetes Heart disease Hyperlipidemia Breast cancer Hypertension Uterine cancer Thyroid condition Physical Exam Const: COMMON NORMALS: alert HENMT: COMMON NORMALS: normocephalic HEAD & SCALP: normocephalic Neck/C-Spine: COMMON NORMALS: full ROM Resp: COMMON NORMALS: normal respiratory effort and clear to auscultation bilaterally AUSCULTATION: clear to auscultation bilaterally Cardio: COMMON NORMALS: regular rate and regular rhythm RATE: regular rate RHYTHM: regular rhythm GI: COMMON NORMALS: Soft to palpation AUSCULTATION: Yes normoactive bowel sounds PALPATION: Yes Soft to palpation and Yes Tenderness to palpation present (GI) Details: LLQ : COMMON NORMALS: Yes no CVA tenderness BLADDER/KIDNEY EXAM: Yes no CVA tenderness Back/Pelvis: COMMON NORMALS: no CVA tenderness Extremity: COMMON NORMALS: full ROM Neuro: SENSORIUM/ORIENTATION: Yes alert Skin: WOUNDS: Yes surgical site (Well-healing, no redness, no drainage) Course Vital Signs: Vital signs: Vital Signs Temperature 97.6 F 11/07/22 21:18 Pulse Rate 78 11/07/22 21:18 Respiratory Rate 18 11/07/22 21:18 Blood Pressure 132/83 11/07/22 21:18 Pulse Oximetry 99 11/07/22 21:18 Oxygen Delivery Me thod Room Air 11/07/22 21:18 MDM - Abdominal Pain Medical Decision Making 27-year-old female comes in today for increased left lower quadrant abdominal pain. On exam patient appears nontoxic. Abdomen slightly distended but soft. Bowel sounds are present. Some tenderness is noted in the left lower quadrant of the abdomen. Differential diagnosis includes but not limited to wound infection, abscess, seroma, hematoma, constipation. CBC notes mild anemia with a hemoglobin 9.9, CMP was unremarkable except for alk phos at 152. CT of the abdomen pelvis noted no signs of acute abnormality. Urinalysis was contaminated with large amount skin cells, culture will be done. Reviewed exam with patient with recommendations for treatment for constipation and follow-up with primary care for further instructions. Encourage fluids and monitoring for worsening symptoms such as high fever, nausea vomiting, or blood in vomit or stool. Patient reported understanding of care plan and need for follow-up or return to the ER. Lab Data 11/07/22 21:34 11/07/22 21:34 Labs/Radiology: Radiology Impressions Abdomen/Pelvis CT 11/07/22 22:20 IMPRESSION: 1. appearance of the uterus with a small amount of surrounding nonlocalized fluid, likely related to recent . 2. Subcutaneous edema over the lower abdominal/pelvic wall is likely postsurgical in nature. 3. Hepatic steatosis. 4. Spleen enlarged 13.7 cm. 5. Cholecystectomy. 6. Right kidney nonobstructing calyceal stone. 7. Right kidney cyst, negative for follow-up advised. 8. Minimal free air in the lower anterior abdominal wall, likely postsurgical in nature. Laboratory Results WBC 10.85 10^3/uL (3.29-11.43) 11/07/22 21: RBC 3.88 10^6/uL (3.85-5.65) 11/07/22 21: Hgb 9.90 g/dL (11.27-16.99) L 11/07/22 21: Hct 30.4 % (36-47) L 11/07/22 21: MCV 78.4 fl (85-98) L 11/07/22 21: MCH 25.5 pg (27-33) L 11/07/22: MCHC 32.6 g/dL (30-55) 11/07/22: RDW 13.1 % (12.1-15.1) 11/07/22: Plt Count 384 10^3/cmm (157-399) 11/07/22: MPV 9.2 fL (7.4-10.4) 11/07/22 21: Neut % (Auto) 73.1 % 11/07/22 21: Lymph % (Auto) 16.5 % 11/07/22 21: [place] % (Auto) 6.1 % 11/07/22 21: Eos % (Auto) 2.8 % 11/07/22: Baso % (Auto) 0.3 % 11/07/22: Neut # (Auto) 7.94 10^3/uL (1.8-7.7) H 11/07/22: Lymph # (Auto) 1.8 10^3/uL (0.8-4.8) 11/07/22 21: [place] # (Auto) 0.7 10^3/uL (0.2-0.9) 11/07/22: Eos # (Auto) 0.3 10^3/uL (0.0-0.8) 11/07/22: Baso # (Auto) 0.0 10^3/uL (0.0-0.1) 11/07/22 21: Nucleated RBC % (auto) 0 % 11/07/22: Nucleated RBCs # 0.0 /100WBC 11/07/22 21:34 Sodium 137 mmol/L (136-145) 11/07/22 21:34 Potassium 4.1 mmol/L (3.5-5.1) 11/07/22 21:34 Chloride 102 mmol/L (98-107) 11/07/22 21:34 Carbon Dioxide 23 mmol/L (22-29) 11/07/22 21:34 Anion Gap 16.1 (5-19) 11/07/22 21:34 BUN 11 mg/dL (6-20) 11/07/22 21:34 Creatinine 0.7 mg/dL (0.5-0.9) 11/07/22 21:34 GFR Calculation 98.9 mL/min (90-130) 11/07/22 21:34 Glucose 123 mg/dL (65-115) H 11/07/22 21:34 Calculated Osmolality 285 mOsm/kg (285-295) 11/07/22 21:34 Calcium 9.1 mg/dL (8.5-10.5) 11/07/22 21:34 Total Bilirubin 0.2 mg/dL (0.15-1.2) 11/07/22 21:34 AST 13 U/L (0-32) 11/07/22 21:34 ALT 9 U/L (0-33) 11/07/22 21:34 Alkaline Phosphatase 152 U/L (35-105) H 11/07/22 21:34 Total Protein 6.3 g/dL (6.6-8.7) L 11/07/22 21:34 Albumin 3.7 g/dL (3.5-5.2) 11/07/22 21:34 Globulin 2.6 g/dL (1.3-4.6) 11/07/22 21:34 Lipase 24 U/L (13-60) 11/07/22 21:34 HCG, Qual Positive (Negative) H 11/07/22 21:34 Urine Color Light yellow (Yellow) 11/07/22 23:23 Urine Appearance Sl hazy (CLEAR) A 11/07/22 23:23 Urine pH 7 (5-7) 11/07/22 23:23 Ur Specific [place] 1.005 (1.005-1.030) 11/07/22 23:23 Urine Protein Neg (Negative) 11/07/22 23:23 Urine Glucose (UA) Norm (Normal) 11/07/22 23:23 Urine Ketones Negative (Negative) 11/07/22 23:23 Urine Blood 3+ (Negative) H 11/07/22 23:23 Urine Nitrate Negative (Negative) 11/07/22 23:23 Urine Bilirubin Neg (Negative) 11/07/22 23:23 Urine Urobilinogen Neg mg/dL (Negative) 11/07/22 23:23 Ur Leukocyte Esterase 2+ (Negative) H 11/07/22 23:23 Urine RBC 5-10 /hpf (0-2) H 11/07/22 23:23 Urine WBC 10-15 /hpf (0-5) H 11/07/22 23:23 Ur Squamous Epith Cells 15-25 /hpf (0-5) H 11/07/22 23:23 Amorphous Sediment Trace /hpf 11/07/22 23:23 Urine Bacteria 1+ /hpf (NONE) H 11/07/22 23:23 All radiology interpretation(s) finalized by discharge Discharge Plan Discharge Patient Disposition: Home Clinical Impression: Abdominal pain Qualifiers: Abdominal location: left lower quadrant Qualified Code(s): R10.32 - Left lower quadrant pain Condition: Stable Prescriptions: No Action Gummies 400 mcg-35 mg- 25 mg-5 mg tablet,chewable 2 tab PO DAILY ibuprofen 800 mg tablet 800 mg PO TID PRN (Reason: pain) Qty: 60 0RF hydrocodone-acetaminophen 5-325 mg tablet 1 tab PO Q4H PRN (Reason: pain) Qty: 30 0RF Iron (ferrous sulfate) 325 mg (65 mg iron) tablet 325 mg PO BID Qty: 60 0RF Colace 100 mg capsule 100 mg PO BID Qty: 60 0RF acetaminophen 325 mg capsule 325 mg PO Q4H PRN (Reason: fever or pain) Qty: 60 0RF Discharge Orders: Discharge ED (Routine); Ordered 11/08/22 Ordered By: Basil Max Discharge Diet: Usual diet Discharge Activity: Increase activity as tolerated Patient Instructions: Abdominal Pain (ED) Activity Restrictions/Additional Instructions: Drink plenty of water and fluids. Continue with medications as for pain. Use stool softener routinely to help prevent constipation. With the stool softener you can take 1 to 2 capsules twice a day. Increase activity as tolerated. Follow-up with primary care or NATIONAL INVESTIGATIVE PRODUCER for further instruction. Return to ER for worsening symptoms such as high fever greater than 100.4, blood in vomit or stool, or new concerns. Coding Level of Care Code ED Assistant Manager Bilingual for Vasquez Witt
[2022-11-07] MEDS: iohexol 350 mg/mL 500 mL Btl (per mL) IV (23:03)
[2022-11-07 23:42] LABS: Add Urine Microscopic? YES; Bilirubin Urine Neg (Negative); Blood Urine 3+ (Negative); Glucose Urine UA Norm (Normal); Ketones Urine Negative (Negative); Leukocyte Esterase Urine 2+ (Negative); Nitrate Urine Negative (Negative); Protein Urine Neg (Negative); Specific Gravity, Urine 1.005 (1.005-1.030); Urine Appearance SL Hazy (CLEAR); Urine Color Light yellow (Yellow); Urobilinogen Urine Neg (Negative); pH Urine 7 (5-7)
[2022-11-07 23:43] LABS: Add Urine Culture? No; Amorphous Sediment Urine TRACE /hpf; Bacteria Urine 1+ /hpf; Squamous Epithelial Cell Urine 15-25 /hpf (0-5)
[2022-11-08 00:41] VITALS: BP 134/88; PULSE 71; RESP 18; O2SAT 96
== END 2022-11-08 00:45 | disposition home or self-care (01) ==
PROVIDERS: Emergency Provider Nurse Practitioner Family
DX: R10.32 Left lower quadrant pain (principal)
CPT/HCPCS: 36415; 74177; 80053; 81001; 83690; 84703; 85025; 99285; Q9967